=== PATIENT | female | born 1980 | race Caucasian/White ===

== ENCOUNTER 2021-06-19 10:49 | Emergency (ER) | payer BC, SELFPAY ==
--- NOTE | 2021-06-19 10:55 | ED.URI ---
HPI - URI/Sore Throat General Chief Complaint: Upper Respiratory Infection Stated Complaint: head pressure,nasal drainage Time Seen by Provider: 06/19/21 10:55 Source: patient Mode of arrival: ambulatory Limitations: no limitations History of Present Illness HPI Narrative: Ms. Rodriguez is a 40-year-old female patient presenting to the clinic today with complaints of head pressure, nasal drainage, shortness of breath, chest pain/back pain with coughing, and sore throat. She reports these symptoms have been going on approximately 3 days. She did have a course of illness with similar symptoms prior to this but it had gotten better for a few days then she had gotten sick again over the last 3 days. Reports that her child was also ill approximately 1 week ago with similar symptoms. She denies any known fevers but has had body aches as well as felt feverish. States she feels like her head is going to just pop due to the pressure. MD elicited complaint: sore throat and nasal congestion Related Data Home Medications Medication Instructions Recorded Confirmed rizatriptan 10 mg PO DIRECTED 06/19/21 06/19/21 sertraline 100 mg PO DAILY 06/19/21 06/19/21 Allergies Allergy/AdvReac Type Severity Reaction Status Date / Time Sulfa (Sulfonamide Allergy Hives Verified 06/19/21 11:25 Antibiotics) Review of Systems Review of Systems: Pertinent positives per HPI. Patient denies any rash, visual changes, dizziness, palpitations, nausea, vomiting, diarrhea, constipation, abdominal pain, or any urinary issues. PMFSH Comments At the time of my signature, I reviewed and agree with the nursing past medical, surgical, social, and family history. There is no relevant family history pertinent to the patient complaint. Exam Narrative: General: Well-developed, well nourished, in no apparent distress Head: Normocephalic, atraumatic Eyes: Pupils equally round and reactive to light bilaterally, EOM intact, sclera and conjunctive clear, no discharge, lids normal Ears: TMs intact and clear, ear canals clear, no drainage, grossly hearing normal. Nose: Nares patent, clear nasal discharge, mild inflammation, no sinus tenderness. Mouth: Oral pharynx without lesions or masses, good dentition, MMM. Postnasal drip, oropharynx red Neck: Supple, trachea midline, no enlargement of anterior or posterior cervical nodes, no thyroid masses or goiter palpable. Cardio: Regular rate and rhythm, s1 and s2 normal, no murmur appreciated. Resp: Clear to auscultation bilaterally, no rhonchi, rales, wheezing or rubs Course Course Emergency Course: Portions of this record may have been created with voice recognition software. Level of Care: Express Care Visit Vital Signs Vital signs: Vital Signs Temperature 37.1 C 06/19/21 11:05 Pulse Rate 110 H 06/19/21 11:05 Respiratory Rate 18 06/19/21 11:05 Blood Pressure 113/73 06/19/21 11:05 Pulse Oximetry 98 06/19/21 11:05 Temperature 37.1 C 06/19/21 11:05 Pulse Rate 110 H 06/19/21 11:05 Respiratory Rate 18 06/19/21 11:05 Blood Pressure 113/73 06/19/21 11:05 Pulse Oximetry 98 06/19/21 11:05 Vital signs reviewed MDM - URI/Sore Throat MDM Narrative Medical decision making narrative: At the time of visit patient is resting comfortably on the exam table. Covid testing, strep testing, and influenza testing obtained in the clinic. Patient was positive for influenza A. Reports symptoms have been proximately going on for 3 days so I will go ahead and give a course of Tamiflu. Droplet precautions regarding influenza A discussed with the patient in detail. Other supportive measures to treat symptoms discussed Differential Diagnosis Differential diagnosis: Likely upper respiratory infection, croup, otitis media, sinusitis, viral infection, bronchitis, influenza and pharyngitis Lab Data Labs: Lab Results 06/19/21 Range/Units 11:25 POC SARS CoV-2 Ag Negative (Negative) Infl
[2021-06-19 11:05] VITALS: BP 113/73; PULSE 110; RESP 18; TEMP 37.1; O2SAT 98
== END 2021-06-19 11:48 | disposition home or self-care (01) ==
PROVIDERS: Emergency Provider Nurse Practitioner Family; PCP Family Medicine
DX: J10.1 Influenza due to other identified influenza virus with other respiratory manifestations (principal); Z20.822 Contact with and (suspected) exposure to COVID-19; F41.9 Anxiety disorder, unspecified
CPT/HCPCS: 87081; 87426; 87804; 87880; 99203; C9803; G0463

== ENCOUNTER 2022-02-25 01:27 | Day surgery (SDC) | payer BC, SELFPAY ==
[2022-02-14 14:19] VITALS: BMI 28.3
--- NOTE | 2022-02-14 14:27 | PC.NURSE ---
Report to the Outpatient Waiting Room, entrance under the green pavilion located off [facility], at time _0930_ on date __02/25/22. Planned Procedure Time: _1130_. Time changes happen often and if your time is changed the preop area will call you the afternoon before. - You and your visitor will be asked to self-screen and do not enter if you have any COVID symptoms. - Only one visitor is requested with a max of two and NO children visitors are allowed at this time. - The patient visitor may be requested to leave or wait in car when not with patient due to distancing restrictions. - A mask is optional within the hospital. Patients may have clear liquids (water, carbonated beverages, clear teas, apple juice) until 3 hours prior to surgery with a maximum of 20 ounces. - No food from midnight until time of surgery - Infants may have breast milk until 4 hours before surgery, infant formula 6 hours prior to surgery. - Children will be allowed to drink immediately following surgery. If applicable, please bring a bottle or sippy cup to assist with drinking. Juice, water, soda, and popsicles are readily available. For infants on formula, please bring formula the day of surgery. Pacifiers are allowed. Take the following medications with a SIP of water the morning of surgery: ___SERTRALINE, PANTOPRAZOLE, MIGRAINE MEDICATION_IF NEEDED__ Medications to discontinue per physician NONE Date to take last dose NONE Please no make-up, nail guamanian, hairspray, perfume, deodorant, or body powder the day of surgery. No jewelry (including any body piercings) or valuables the day of surgery, leave them at home. Please take a shower or bath the night before, or the morning of, surgery with an antibacterial soap. Wear comfortable, loose fitting clothing. Children are encouraged to wear pajamas. - Jewelry must be removed prior to entering the operating room. Rings and piercings that are not removed may be cut off. - The hospital will not accept responsibility for valuables. - Please leave all valuables, including medications, at home the day of surgery. If you are going home after surgery, a licensed moving van driver must drive you home. - NO public transportation without another adult if you receive anesthesia. - We recommend that an adult stay with you for 24 hours following discharge. - We also recommend that you do not drive, make important decision, drink alcoholic beverages, or take any drugs that were not prescribed by your health care provider for at least 24 hours after your discharge time. For Pediatric surgeries, we recommend two adults accompany the child home. Follow any additional instructions given to you from your surgeon. If you or anyone in your household have experienced Covid symptoms in the past week, please notify your surgeon or the nurse liaison at the phone number below for possible testing. Telephone instructions given to ____PATIENT and asked if any additional questions and then verbalized understanding. Patient advised to call surgeon office or pre surgery nurse liaison [phone] if any additional questions.
--- NOTE | 2022-02-23 07:54 | PM.IMHP ---
H&P: HPI History of Present Illness Date/Time: 02/23/22 07:54 Chief Complaint: desires permanent sterilization and bleeding refractory to medical therapy Narrative: cis 41-year-old female who is admitted for laparoscopic bilateral tubal ligation hysteroscopy dilatation curettage and endometrial ablation. She has had excessive heavy bleeding and dysmenorrhea she has been unable take the control pill she did feel well on it she refused an IUD or any other hormonal manipulation. She understands this to be permanent irreversible. Risks and benefits of these procedures were reviewed including but not exclusive of , aspiration pneumonia, bleeding, transfusion, perforation injury to bowel, bladder, ureters, or other internal organs with need for open laparotomy. She received the ACOG handout entitled sterilization for men and women as well as hysteroscopy and dilatation and curettage respectively. She received the handout on Betsy. She had all questions answered and asked to proceed [facility] Social History Social History Years smoked: 2 Smoking status: Former smoker Additional smoking assessment comments: RARE SOCIAL SMOKER Alcohol intake: current Drinks per week: 2 Substance use: never Living arrangements: with family Meds Home Medications and Allergies Home Medications Medication Instructions Recorded Confirmed Type sertraline 100 mg tablet 100 mg PO DAILY 06/19/21 06/19/21 History pantoprazole 40 mg tablet,delayed 40 mg PO DAILY 02/14/22 02/14/22 History release sumatriptan succinate 50 mg tablet 50 mg PO PRN MIGRAINE 02/14/22 02/14/22 History Allergies Allergy/AdvReac Type Severity Reaction Status Date / Time Sulfa (Sulfonamide Allergy Hives Verified 02/14/22 14:13 Antibiotics) Exam Const: General: cooperative, healthy appearing, comfortable and well groomed Nutritional Appearance: average body habitus Orientation/consciousness: oriented to person, oriented to place and oriented to time HENMT: Head: normal to inspection Resp: Effort & Inspection: normal respiratory effort Cardio: Rate: regular rate Rhythm: regular rhythm Heart sounds: S1 normal heart sound present and S2 normal heart sound present GI: Inspection: normal to inspection Auscultation: normal bowel sounds : Speculum Exam - Vagina: normal appearance of the vagina Speculum Exam - Cervix: normal appearance of the cervix Bimanual exam- vagina & uterus: enlarged Bimanual Exam- Adnexa, other: normal adnexae Assessment and Plan Assessment and plan (1) Sterilization: Code(s): Z30.2 - Encounter for sterilization Status: Acute (2) Vaginal bleeding: Code(s): N93.9 - Abnormal uterine and vaginal bleeding, unspecified Status: Acute Plan laparoscopic bilateral tubal ligation. Hysteroscopy/ dilatation curettage/Betsy ablation
[2022-02-25] VITALS (9 sets, daily range): BP systolic 112–139; BP diastolic 73–92; PULSE 66–87; RESP 11–16; TEMP 36.3–36.5; O2SAT 99–100
--- NOTE | 2022-02-25 07:16 | WPDHPUPDATE1 ---
History and Physical Update Update Date/Time: 02/25/22 07:16 History and Physical has been reviewed, including an updated exam of the patient. There are NO changes in the patient's condition. Risks, benefits, and alternatives have been discussed and questions answered. Patient agrees to proceed with procedure.
[2022-02-25] MEDS: ACETAMINOPHEN 500 MG TABLET 1000 MG PO (10:10)
--- NOTE | 2022-02-25 10:18 | WPDANESEPPF ---
Anes - Initial Pre Proc Eval Procedure: Operation Date: 02/25/22 11:30 Proposed Procedures p Laparoscopic Bilateral Tubal Ligation with Fallopian Rings - Jonathan Ruiz MD s Hysteroscopy with Dilation and Curettage, Betsy Endometrial Ablation - Jonathan Ruiz MD Date/Time: 02/25/22 10:18 Surgeon: Jonathan Ruiz MD Pre Op Diagnosis: Desire Sterilization, Irrg Bleeding Patient Data Age: 41 Gender: F Height: 1.63 m Weight: 75 kg Allergies Allergy/AdvReac Type Severity Reaction Status Date / Time duloxetine [From Cymbalta] AdvReac Itching Verified 02/25/22 09:59 Sulfa (Sulfonamide AdvReac Hives Verified 02/25/22 09:59 Antibiotics) sulfamethoxazole AdvReac Itching Verified 02/25/22 09:59 [From Bactrim] trimethoprim [From Bactrim] AdvReac Itching Verified 02/25/22 09:59 venlafaxine [From Effexor] AdvReac Itching Verified 02/25/22 09:59 Home Medications Medication Instructions Recorded Confirmed Type sertraline 100 mg tablet 100 mg PO DAILY 06/19/21 06/19/21 History pantoprazole 40 mg tablet,delayed 40 mg PO DAILY 02/14/22 02/25/22 History release sumatriptan succinate 50 mg tablet 50 mg PO PRN MIGRAINE 02/14/22 02/25/22 History hydrocodone 5 mg-acetaminophen 325 1 tablet PO Q4H PRN pain #20 tabs 02/25/22 Rx mg tablet Patient hx anesthesia problems: post op nausea/vomiting Family hx anesthesia problems: other (grandfather confusion) Results Review: All pre-operative results and documents have been reviewed as part of the pre-operative evaluation. [facility] Past Medical History Medical History Anxiety GERD (gastroesophageal reflux disease) Social History Social History Years smoked: 2 Smoking status: Former smoker Additional smoking assessment comments: RARE SOCIAL SMOKER Alcohol intake: current Drinks per week: 2 Substance use: never Living arrangements: with family Anes - Eval Final PreProcedure Day of Procedure 02/25/22 10:18 Patient weight: overweight Heart: regular rate and rhythm Lungs: clear to auscultation Airway: Mallampati scale class II Neurological: alert and oriented Last oral intake: >/= 8 hours ASA classification: II Emergent: no Anesthetic plan: proceed Anesthesia type and monitoring: general ETT and standard monitoring Results Review: All pre-operative results and documents have been reviewed as part of the pre-operative evaluation. Informed Consent: The patient's anesthetic plan and its attendant risks and benefits were discussed with the patient/family/POA. Questions were solicited and answers provided to the satisfaction of the patient/family/POA.
[2022-02-25] MEDS: LACTATED RINGERS 1,000 ML 30 ML IV CONT ×2 (10:20→12:40)
[2022-02-25] MEDS: SCOPOLAMINE 1.5 MG PATCH TRANSDERM (10:47)
[2022-02-25] MEDS: KETOROLAC 15 MG/ML VIAL (*BKC) IV PUSH (10:55)
--- NOTE | 2022-02-25 11:45 | P.OP_ITS ---
Procedure Note - Detailed Date of Procedure 02/25/22 Pre-op Diagnosis Desire Sterilization, Irrg Bleeding Post-op Diagnosis Same Procedure Performed Laparoscopic tubal ligation with rings/hysteroscopy/ dilatation curettage/Betsy ablation Surgeon Jonathan Ruiz MD Anesthesia General Indications since 41-year-old female who desires permanent sterilization with excessive heavy bleeding Findings normal-appearing uterus ovaries and tubes Description of Procedure the patient is prepped draped in normal sterile fashion placed in dorsal lithotomy position. Under excellent general trach anesthesia weighted speculum placed in posterior fornix vagina. Anterior lip of the cervix grasped with single-tooth tenaculum. The Germain's cannula was inserted the cervix and attached to the single-tooth be used later for uterine manipulation. After emptying the bladder clear urine the weighted speculums removed and gloves were changed. An infraumbilical incision made the Veress needle passed in the abdomen. Abdomen filled with CO2 gas to 15mm Hg. 5mm trocar advanced the abdomen and under direct visualization assuring no injury. The patient was placed in Trendelenburg and a suprapubic incision made. The 8mm trocar advanced under direct visualization assuringno injury. The left fallopian tube was grasped good knuckle of tube formed its midportion with excellent blanching. Right fallopian tube was then grasped and the fallopian ring was placed in the midportion with excellent blanching there. No other abnormalities were seen in photo documentation was undertaken. The appendix and the liver and gallbladder edge appeared within normal limits. The gas removed from the abdomen. The lower site removed. The upper site removed incisions closed with 4 Monocryl and glue. Attention was turned to the hysteroscopy. uterus was sounded to 8cm. Serial dilatation with fragmented dilators performed followed by passes the 5mm visualizing hysteroscope using normal saline as visualizing the thick irregular endometrial tissue was seen in each fallopian tube os could be seen but no evidence of definitive pathology was seen. Uterus scraped over the entire 360? till good grating sound was heard. The instruments removed and the Betsy instrument was placed in the uterus at the appropriate setting. It was burned for 120seconds. This was then removed and the hysteroscope reinserted and a g ood burn was seen with photo documentation undertaken. The instruments were then removed. The patient was awakened. She went to recovery in satisfactory condition. All sponge, needle, instrument counts were correct. There were no acute immediate complications Estimated Blood Loss 5 Drains No Packing No Pathology Yes Complications No immediate complications Condition Stable Disposition PACU
[2022-02-25] MEDS: fentaNYL CITRATE INJ (*CRX) 100 MCG/2 ML VIAL 25 MCG IV PUSH ×5 (12:02→12:37)
[2022-02-25] MEDS: oxyCODONE HCL (*CRX) 5 MG TAB IR PO (13:12)
[2022-02-25] MEDS: ONDANSETRON INJ 4 MG/2 ML VIAL IV PUSH (13:25)
== END 2022-02-25 13:50 | disposition home or self-care (01) ==
PROVIDERS: PCP Family Medicine; Visit Provider Obstetrics & Gynecology
PROC: (CPT 58671; principal; 2022-02-25 11:30)
PROC: 0U5B8ZZ Destruction of Endometrium, Via Natural or Artificial Opening Endoscopic (ICD-10-PCS; CPT 58563; 2022-02-25 11:30)
DX: Z30.2 Encounter for sterilization (principal); N93.9 Abnormal uterine and vaginal bleeding, unspecified; N94.6 Dysmenorrhea, unspecified; F41.9 Anxiety disorder, unspecified; K21.9 Gastro-esophageal reflux disease without esophagitis; Z87.891 Personal history of nicotine dependence
CPT/HCPCS: 58671; 58563; 88305; A4264; A9270; J0330; J1100; J1885; J2250; J2405; J2704; J3010; J7030; J7120

== ENCOUNTER 2022-10-14 10:01 | Emergency (ER) | payer BC, SELFPAY ==
[2022-10-14 10:09] VITALS: BP 128/83; PULSE 99; RESP 16; TEMP 36.9; O2SAT 100
--- NOTE | 2022-10-14 10:09 | ED.URI ---
HPI - URI/Sore Throat General Chief Complaint: Upper Respiratory Infection Stated Complaint: Sore Throat,Fatigue,Congestion Time Seen by Provider: 10/14/22 10:09 History of Present Illness HPI Narrative: 42 year old female presented for complaint of sore throat, cough, bodyaches and fatigue. Onset 2 days. Cough is productive. Reports painful swallow, mild nausea, and chest feels heavy. Took negative covid test the day of symptom onset, and was seen by pcp yesterday and had negative rapid strep. Endorses sick contacts with unknown illness. Took Dayquil today. Denies cp, palpitations, sob, wheezing, v/d/f/c. Related Data Home Medications Medication Instructions Recorded Confirmed pantoprazole 40 mg tablet,delayed 40 mg PO DAILY 02/14/22 10/14/22 release sumatriptan succinate 50 mg tablet 50 mg PO PRN PRN MIGRAINE 02/14/22 10/14/22 escitalopram oxalate 20 mg tablet 20 mg PO DAILY 10/14/22 10/14/22 (Lexapro) sarecycline 60 mg tablet (Seysara) 60 mg PO DAILY 10/14/22 10/14/22 Allergies Allergy/AdvReac Type Severity Reaction Status Date / Time duloxetine [From Cymbalta] AdvReac Mild Itching Verified 10/14/22 10:04 Sulfa (Sulfonamide AdvReac Mild Hives Verified 10/14/22 10:04 Antibiotics) sulfamethoxazole AdvReac Mild Itching Verified 10/14/22 10:04 [From Bactrim] trimethoprim [From Bactrim] AdvReac Mild Itching Verified 10/14/22 10:04 venlafaxine [From Effexor] AdvReac Mild Itching Verified 10/14/22 10:04 Review of Systems Review of Systems: CONSTITUTIONAL: reports body aches, denies fever, chills, or sweats. EYES: Denies visual changes, redness, or discharge. ENT: Denies rhinorrhea, congestion, or otalgia. Reports sore throat CARDIOVASCULAR: Denies chest pain, palpitations, or edema. RESPIRATORY: Reports cough Denies dyspnea. GASTROINTESTINAL: Denies abdominal pain, nausea, vomiting, or diarrhea. SKIN: Denies rash, itching, or wounds. MUSCULOSKELETAL: Denies back pain, joint pain, or myalgia. NEUROLOGIC: Denies headache PMFSH Past Medical History Medical History Anxiety GERD (gastroesophageal reflux disease) Social History Social History Years smoked: 2 Smoking status: Former smoker Additional smoking assessment comments: RARE SOCIAL SMOKER Alcohol intake: current Drinks per week: 2 Substance use: never Living arrangements: with family Exam Narrative: GENERAL: mildly Ill-appearing, no acute distress. EYES: conjunctivae clear ENT: Mucous membranes moist. TMs pearly gross with normal light reflex bilaterally; no tragal tenderness. Oropharynx not erythematous without lesions, Tonsillar enlargement or exudate. No drooling, no hoarseness, no trismus, uvula midline. No tripod positioning, hot potato voice, or soft palate swelling. NECK: Supple. No lymphadenopathy CHEST: Clear to auscultation, breath sounds equal. No respiratory distress, speaks in full sentences. HEART: Regular rate and rhythm. No murmur heard. SKIN: Warm, dry, no rash. NEURO: Alert and oriented x3. Course Course Emergency Course: Patient is aware of diagnosis, understands and agrees to treatment plan. Anticipatory guidance given. Patient agrees to follow-up as directed and is aware of reasons to seek care at the emergency department. Portions of this record may have been created with voice recognition software Level of Care: Express Care Visit Vital Signs Vital signs: Vital Signs Temperature 98.4 F 10/14/22 10:09 Pulse Rate 99 10/14/22 10:09 Respiratory Rate 16 10/14/22 10:09 Blood Pressure 128/83 10/14/22 10:09 Pulse Oximetry 100 10/14/22 10:09 Oxygen Delivery Room Air 10/14/22 10:09 Temperature 98.4 F 10/14/22 10:09 Pulse Rate 99 10/14/22 10:09 Respiratory Rate 16 10/14/22 10:09 Blood Pressure 128/83 10/14/22 10:09 Pulse Oximetry 100 07
== END 2022-10-14 10:48 | disposition home or self-care (01) ==
PROVIDERS: Emergency Provider Nurse Practitioner Family; PCP Family Medicine
DX: B34.9 Viral infection, unspecified (principal); Z20.822 Contact with and (suspected) exposure to COVID-19; K21.9 Gastro-esophageal reflux disease without esophagitis; F41.9 Anxiety disorder, unspecified
CPT/HCPCS: 87081; 87426; 87804; 87880; 99213; C9803; G0463

== ENCOUNTER → 2022-10-31 08:05 | Outpatient (CLI) | payer BC, SELFPAY ==
--- NOTE | ~2022-10-31 | US_ITS ---
EXAMINATION: US abdomen limited DATE: 10/31/2022 08:38 INDICATION: Generalized abdominal pain TECHNIQUE: Multiple grayscale and Doppler ultrasound images of the abdomen were obtained. COMPARISON: None available FINDINGS: The head and body of the pancreas are normal. The pancreatic tail is obscured by bowel gas. The liver is normal with normal echogenicity and echotexture. No surface nodularity. Normal hepatope sebastian flow in the main portal vein. There is a 7 mm gallbladder polyp. There are no gallbladder wall th ickening or pericholecystic fluid. The normal common bile duct measures 3 mm. There was no sonographi c Chawla sign. IMPRESSION: 1. No sonographic correlate for the patient's symptoms. 2. 7 mm gallbladder polyp. Follow-up ultrasound in one year is recommended. Reviewed, dictated and finalized at location B.
== END ==
PROVIDERS: PCP Family Medicine; Visit Provider Family Medicine
DX: R10.84 Generalized abdominal pain (principal); K82.4 Cholesterolosis of gallbladder
CPT/HCPCS: 76705

== ENCOUNTER → 2022-12-21 09:54 | Outpatient (CLI) | payer BC, SELFPAY ==
--- NOTE | ~2022-12-21 | CT_ITS ---
CT of the Abdomen and Pelvis: Indication: Abdominal pain Technique: 2.5 mm axial scans were obtained through the abdomen and pelvis following intravenous adm inistration of 100 cc of Omnipaque 350. Dose reduction technique was used on this scan by utilizing a utomated exposure control and iterative reconstruction technique. The dose-length product (DLP) was 7 00.13 mGy-cm. Findings: Scans through the lung bases are unremarkable. The liver, spleen, pancreas, gallbladder, adrenals and kidneys are within normal limits. No evidence of aortic aneurysm. No lymphadenopathy. No bowel obstruction or bowel wall thickening. There is no evidence to suggest acute appendicitis. Images through the pelvis were performed. Urinary bladder unremarkable. No adnexal mass seen. No asci sonal. Impression: No significant abnormalities seen. Reviewed, dictated and finalized at [facility]. Impression: No significant abnormalities seen.
== END ==
PROVIDERS: PCP Family Medicine; Visit Provider Family Medicine
DX: R10.84 Generalized abdominal pain (principal)
CPT/HCPCS: 74177; Q9967

== ENCOUNTER 2023-05-26 01:04 | Day surgery (SDC) | payer BC, SELFPAY ==
[2023-05-18 11:06] VITALS: BMI 27.5
[2023-05-26 08:49] VITALS: BP 116/67; PULSE 120; RESP 18; TEMP 36.1; O2SAT 98
[2023-05-26] MEDS: LACTATED RINGERS 1,000 ML 150 ML IV CONT (08:53)
--- NOTE | 2023-05-26 09:01 | WPDANESEPPF ---
Anes - Initial Pre Proc Eval Procedure: Operation Date: 05/26/23 10:00 Proposed Procedures p Esophagogastroduodenoscopy & Colonoscopy - Semaj Nicholson MD Date/Time: 05/26/23 09:01 Surgeon: Semaj Nicholson MD Pre Op Diagnosis: dysphagia,nausea,GERD,Constipation, Patient Data Age: 42 Gender: F Height: 1.63 m Weight: 71.9 kg Last Vital Signs Temp 97 F L 05/26/23 08:49 Pulse 120 H 05/26/23 08:49 Resp 18 05/26/23 08:49 BP 116/67 05/26/23 08:49 Pulse Ox 98 05/26/23 08:49 O2 Del Method Room Air 05/26/23 08:49 Allergies Allergy/AdvReac Type Severity Reaction Status Date / Time duloxetine [From Cymbalta] Allergy Mild Itching Verified 05/26/23 08:48 Sulfa (Sulfonamide Allergy Mild Hives Verified 05/26/23 08:48 Antibiotics) sulfamethoxazole Allergy Mild Hives Verified 05/26/23 08:48 [From Bactrim] trimethoprim [From Bactrim] Allergy Mild Hives Verified 05/26/23 08:48 venlafaxine [From Effexor] Allergy Mild Itching Verified 05/26/23 08:48 Home Medications Medication Instructions Recorded Confirmed Type sumatriptan succinate 50 mg tablet 50 mg PO PRN PRN MIGRAINE 02/14/22 05/26/23 History alprazolam 0.25 mg tablet 0.25 mg PO DAILY PRN Anxiety 03/30/23 05/26/23 History spironolactone 100 mg tablet 100 mg PO DAILY 03/30/23 05/26/23 History pantoprazole 40 mg tablet,delayed 40 mg PO QAM #30 tabs 05/04/23 05/26/23 Rx release sucralfate 1 gram tablet (Carafate) 1 g PO ACHS #120 tabs 05/04/23 05/26/23 Rx ascorbic acid (vitamin C) 500 mg 500 mg PO DAILY 05/18/23 05/26/23 History capsule magnesium gluconate 120 mg PO DAILY 05/18/23 05/26/23 History sertraline 100 mg tablet 100 mg PO DAILY 05/18/23 05/26/23 History vitamin B complex 1 cap PO DAILY 05/18/23 05/26/23 History Patient hx anesthesia problems: none Family hx anesthesia problems: none Results Review: All pre-operative results and documents have been reviewed as part of the pre-operative evaluation. [facility] Past Medical History Medical History (Updated 03/30/23 @ 11:38 by Kathrin Alonso APRN) Anxiety Constipation Dysphagia GERD (gastroesophageal reflux disease) Nausea Rectal bleeding Social History Social History Years smoked: 2 Smoking status: Never smoker Additional smoking assessment comments: RARE SOCIAL SMOKER Alcohol intake: current Drinks per week: 2 Alcohol use details: DRINKS Substance use: never Living arrangements: with family Spiritual care concerns: No Anes - Eval Final PreProcedure Day of Procedure 05/26/23 09:01 Patient weight: normal Heart: regular rate and rhythm Lungs: clear to auscultation Airway: Mallampati scale class II Neurological: alert and oriented Last oral intake: >/= 8 hours ASA classification: II Emergent: no Anesthetic plan: proceed Anesthesia type and monitoring: general GIVS and standard monitoring Results Review: All pre-operative results and documents have been reviewed as part of the pre-operative evaluation. Informed Consent: The patient's anesthetic plan and its attendant risks and benefits were discussed with the patient/family/POA. Questions were solicited and answers provided to the satisfaction of the patient/family/POA.
--- NOTE | 2023-05-26 09:42 | PM.HPGS ---
History of Present Illness History of Present Illness Consent: Risks, benefits, and alternatives have been discussed and questions answered. Patient agrees to proceed with procedure. Chief complaint: dysphagia,nausea,GERD,Constipation, Narrative: Magaly Rodriguez is a 42 year old female here for egd and colonoscopy, She states at times she has trouble with food slowing down when she swallows, also gerd on protonix. Noted intermittent rectal bleeding, never had scopes Review of Systems Constitutional: Constitutional: Denies headache(s) and Denies weakness Eyes: Eyes: Denies blurry vision ENT: Reports Normal hearing present, Denies headache(s) and Denies neck pain Cardiovascular: Cardiovascular: Denies chest pain and Denies dyspnea Respiratory: Respiratory: Denies dyspnea Gastrointestinal: Gastrointestinal: Reports no additional gastrointestinal complaints Genitourinary: Genitourinary: Denies dysuria Musculoskeletal: Musculoskeletal: Denies neck pain Integumentary/Breasts: Skin/Breast: Denies dry skin Neurologic: Reports Normal hearing present, Denies headache(s) and Denies weakness Psychiatric: Psychiatric: Denies anxiety Endocrine: Endocrine: Denies change in body appearance Hematologic/Lymphatic: Hematologic/Lymphatic: Denies easy bleeding Allergic/Immunologic: Allergic/Immunologic: Denies urticaria PMFSH Past Medical History Medical History (Updated 03/30/23 @ 11:38 by Kathrin Alonso APRN) Anxiety Constipation Dysphagia GERD (gastroesophageal reflux disease) Nausea Rectal bleeding Social History Social History Years smoked: 2 Smoking status: Never smoker Additional smoking assessment comments: RARE SOCIAL SMOKER Alcohol intake: current Drinks per week: 2 Alcohol use details: DRINKS Substance use: never Living arrangements: with family Spiritual care concerns: No Meds Home Medications and Allergies Home Medications Medication Instructions Recorded Confirmed Type sumatriptan succinate 50 mg tablet 50 mg PO PRN PRN MIGRAINE 02/14/22 05/26/23 History alprazolam 0.25 mg tablet 0.25 mg PO DAILY PRN Anxiety 03/30/23 05/26/23 History spironolactone 100 mg tablet 100 mg PO DAILY 03/30/23 05/26/23 History pantoprazole 40 mg tablet,delayed 40 mg PO QAM #30 tabs 05/04/23 05/26/23 Rx release sucralfate 1 gram tablet (Carafate) 1 g PO ACHS #120 tabs 05/04/23 05/26/23 Rx ascorbic acid (vitamin C) 500 mg 500 mg PO DAILY 05/18/23 05/26/23 History capsule magnesium gluconate 120 mg PO DAILY 05/18/23 05/26/23 History sertraline 100 mg tablet 100 mg PO DAILY 05/18/23 05/26/23 History vitamin B complex 1 cap PO DAILY 05/18/23 05/26/23 History Allergies Allergy/AdvReac Type Severity Reaction Status Date / Time duloxetine [From Cymbalta] Allergy Mild Itching Verified 05/26/23 08:48 Sulfa (Sulfonamide Allergy Mild Hives Verified 05/26/23 08:48 Antibiotics) sulfamethoxazole Allergy Mild Hives Verified 05/26/23 08:48 [From Bactrim] trimethoprim [From Bactrim] Allergy Mild Hives Verified 05/26/23 08:48 venlafaxine [From Effexor] Allergy Mild Itching Verified 05/26/23 08:48 Vital Signs Vital Signs - 24 hr 05/26/23 08:49 Temperature 97 F L Pulse Rate 120 H Respiratory Rate 18 Blood Pressure 116/67 Pulse Oximetry 98 Oxygen Delivery Room Air Exam Const: General: comfortable and no acute distress HENMT: Face/Nose/Sinus: Normal nares present Eyes: General: appearance normal, both eyes and all related structures Neck: Neck: no JVD Resp: Auscultation: clear to auscultation bilaterally Cardio: Rate: regular rate Rhythm: regular rhythm GI: Inspection: non-distended GI Palp: Yes Soft to palpation Skin: General skin exam: normal color Neuro: General: gait normal Speech: normal speech Extrem: General: normal to inspection Psych: Mental Status: mental status grossly normal Assessment and Pl
--- NOTE | 2023-05-26 09:59 | SUR.OPER ---
egd ended at 952, colon started at 958
[2023-05-26 10:11] VITALS: BP 104/57; PULSE 89; RESP 19; O2SAT 100
[2023-05-26 10:21] VITALS: BP 116/77; PULSE 86; RESP 20; O2SAT 100
[2023-05-26 10:31] VITALS: BP 123/83; PULSE 75; RESP 20; O2SAT 100
== END 2023-05-26 10:39 | disposition home or self-care (01) ==
PROVIDERS: PCP Family Medicine; Visit Provider Internal Medicine Gastroenterology
PROC: 0DJ08ZZ Inspection of Upper Intestinal Tract, Via Natural or Artificial Opening Endoscopic (ICD-10-PCS; CPT 43235; principal; 2023-05-26 10:00)
DX: K21.00 Gastro-esophageal reflux disease with esophagitis, without bleeding (principal); K29.50 Unspecified chronic gastritis without bleeding; K64.8 Other hemorrhoids; F41.9 Anxiety disorder, unspecified
CPT/HCPCS: 45378; 43239; 88305; J2405; J2704; J7120

== ENCOUNTER 2024-06-04 14:49 | Emergency (ER) | payer BC, SELFPAY ==
[2024-06-04 15:05] VITALS: BP 121/82; PULSE 75; RESP 18; TEMP 36.4; O2SAT 99
--- NOTE | 2024-06-04 15:08 | ED.URI ---
HPI - URI/Sore Throat General Chief Complaint: Upper Respiratory Infection Stated Complaint: sore throat / chills / Lt Ear Pain Time Seen by Provider: 06/04/24 15:10 Source: patient Mode of arrival: ambulatory Limitations: no limitations History of Present Illness HPI Narrative: Solitario is a 43-year-old female patient presenting to the clinic today with complaints of sore throat, nasal drainage, chills, feeling flushed, and left ear pain x2 days. She reports strep is been going around the house. Denies any known fevers. Denies any chest pain or shortness of breath. Related Data Home Medications ?Medication ?Instructions ?Recorded ?Confirmed ?Last Taken ?Type sumatriptan succinate 50 mg tablet 50 mg PO PRN PRN MIGRAINE 02/14/22 05/26/23 02/24/22 History alprazolam 0.25 mg tablet 0.25 mg PO DAILY PRN Anxiety 03/30/23 05/26/23 Unknown History spironolactone 100 mg tablet 100 mg PO DAILY 03/30/23 05/26/23 Unknown History ascorbic acid (vitamin C) 500 mg 500 mg PO DAILY 05/18/23 05/26/23 Unknown History capsule magnesium gluconate 120 mg PO DAILY 05/18/23 05/26/23 Unknown History sertraline 100 mg tablet 100 mg PO DAILY 05/18/23 05/26/23 Unknown History vitamin B complex 1 cap PO DAILY 05/18/23 05/26/23 Unknown History Allergies Allergy/AdvReac Type Severity Reaction Status Date / Time duloxetine (From Cymbalta) Allergy Mild Itching Verified 06/04/24 15:10 Sulfa (Sulfonamide Allergy Mild Hives Verified 06/04/24 15:10 Antibiotics) sulfamethoxazole (From Allergy Mild Hives Verified 06/04/24 15:10 Bactrim) trimethoprim (From Bactrim) Allergy Mild Hives Verified 06/04/24 15:10 venlafaxine (From Effexor) Allergy Mild Itching Verified 06/04/24 15:10 Review of Systems Review of Systems: Pertinent positives per HPI. Patient denies any fever, chills, rash, headache, visual changes, dizziness, cough, shortness of breath, chest pain, palpitations, nausea, vomiting, diarrhea, constipation, abdominal pain, or any urinary issues. [facility] Past Medical History Medical History (Updated 06/04/24 @ 15:16 by Jhonatan Card APRN) Constipation Rectal bleeding Nausea Dysphagia GERD (gastroesophageal reflux disease) Anxiety Social History Social History Years smoked: 2 Smoking status: Never smoker Additional smoking assessment comments: RARE SOCIAL SMOKER Alcohol intake: current Drinks per week: 2 Alcohol use details: DRINKS Substance use: never Living arrangements: with family Spiritual care concerns: No Comments At the time of my signature, I reviewed and agree with the nursing past medical, surgical, social, and family history. There is no relevant family history pertinent to the patient complaint. Exam Narrative: General: Well-developed, well nourished, in no apparent distress Head: Normocephalic, atraumatic Eyes: Pupils equally round and reactive to light bilaterally, EOM intact, sclera and conjunctive clear, no discharge, lids normal Ears: TMs intact and congestion, ear canals clear, no drainage, grossly hearing normal. Nose: Nares patent, clear nasal discharge, no inflammation, no sinus tenderness. Mouth: Oral pharynx without lesions or masses, good dentition, MMM. Neck: Supple, trachea midline, no enlargement of anterior or posterior cervical nodes, no thyroid masses or goiter palpable. Cardio: Regular rate and rhythm, s1 and s2 normal, no murmur appreciated. Resp: Clear to auscultation bilaterally, no rhonchi, rales, wheezing or rubs Course Course Emergency Course: Portions of this record may have been created with voice recognition software. Level of Care: Express Care Visit Vital Signs Vital signs: Vital Signs Temperature 36.4 C 06/04/24 15:05 Pulse Rate 75 06/04/24 15:05 Respiratory Rate 18 06/04/24 15:05 Blood Pressure 121/82 06/04/24 15:05 Pulse Oximetry 99 06/04/24 15:05 Oxygen Delivery Room Air 06/04/24 15:05 Temperature 36.4 C 06/04/24 15:05 Pulse Rate 75 06/04/24 15:05 Respiratory Rate 18 06/04/24 15:05 Blood Pressure 121/82 06/04/24 15:05 Pulse Oximetry 99 06/04/24 15:05 Oxygen Delivery Room Air 06/04/24 15:05 Vital signs reviewed MDM - URI/Sore Throat MDM Narrative Medical decision making narrative: At the time of visit patient is resting comfortably on the exam table. Patient appears to be nontoxic. Labs: Strep test was performed and was negative in the clinic today. We will send strep for culture. Plan: I suspect patient has URI/pharyngitis. Supportive measures were discussed with the patient and they voiced understanding discharge instructions and agrees to treatment plan. Return precautions reviewed Differential Diagnosis Differential diagnosis: Likely upper respiratory infection, otitis media, sinusitis, viral infection, bronchitis, influenza, pharyngitis and other (COVID) Lab Data Labs: Lab Results 06/04/24 Range/Units 15:17 POC Grp A Strep Screen Negative (Negative) Discharge Plan Discharge Clinical Impression: Pharyngitis Qualifiers: Pharyngitis/tonsillitis etiology: unspecified etiology Qualified Code(s): J02.9 - Acute pharyngitis, unspecified Upper respiratory infection Qualifiers: URI type: unspecified URI Qualified Code(s): J06.9 - Acute upper respiratory infection, unspecified Patient Disposition: Home, Self-Care Condition: Stable Instructions: Antibiotic Form, Pharyngitis (ED), Cold Symptoms (ED) Additional Instructions: Strep test was negative in the clinic today. We will send strep for culture. May take DayQuil/NyQuil for cold/flu symptoms Increase fluids and stay well hydrated Tylenol/motrin for pain/fever Flonase and OTC antihistamines as directed Vicks vapor rub to open sinuses Sinus rinses for congestion Cepacol spray, cough drops, throat lozenges, warm tea with honey/lemon, gargle salt water to soothe throat BRAT diet for diarrhea Clear liquids x 24 hours then advance as tolerated for nausea/vomiting Go to the ED if you develop a worsening in your condition- high fever not controlled by Tylenol or Motrin, dehydration, weakness, lethargy, shortness of breath, or chest pain. Follow up with your PCP in 3-5 days if symptoms persist. Patient Language: Solomon Islander Prescriptions: No Action alprazolam 0.25 mg tablet 0.25 mg PO DAILY PRN (Reason: Anxiety) spironolactone 100 mg tablet 100 mg PO DAILY sumatriptan succinate 50 mg tablet 50 mg PO PRN PRN (Reason: MIGRAINE) sertraline 100 mg tablet 100 mg PO DAILY vitamin B complex Capsule 1 cap PO DAILY ascorbic acid (vitamin C) 500 mg Capsule 500 mg PO DAILY magnesium gluconate 120 mg PO DAILY pantoprazole 40 mg tablet,delayed release (DR/EC) 40 mg PO QAM Qty: 30 3RF sucralfate [Carafate] 1 gram tablet 1 g PO ACHS Qty: 120 0RF Follow-up/Referrals: Edward,MD Priscilla [Primary Care Provider] - Stand Alone Forms: Work/School Release IP Time of Disposition: 15:17 Quality NIHSS Nursing Documentation ED NIHSS nursing documentation: reviewed/agree
[2024-06-04 15:18] LABS: EDSTREPNEGPOS1 Negative (Negative)
--- OUTSIDE RECORDS SUMMARY | 2024-06-04 16:53 | XMS_ITS | Encounter Summary ---
Author Organization [facility] Address [address] [place] [address] Care Team Providers Care Barrel Waterer Name Role Phone Priscilla Leon MD Primary Care Provider [phone] Encounter Details Date Type Department Care Team (Late st Contact Info) Description 10/22/2019 Lab Requisition [facility] [address] [place] [id number] Marychuy Andrade MD [address] [facility] [address] [place] [address] Social History Tobacco Use Types Packs/Day Years Used Date Smoking Tobacco: Never Sex and Gender Information Value Date Recorded Sex Assigned at Not on file Gender Identity Not on file Sexual Orientation Not on file documented as of this encounter Plan of Treatment Not on file documented as of this encounter Procedures Procedure Name Priority Date/Time Associated Diagnosis Comments DERMATOPATHOLOGY Routine 10/21/2019 12:0 0 AM CDT documented in this encounter Results * DERMATOPATHOLOGY (10/21/2019 12:00 AM CDT) Case Report Dermatopathology Report Case: [id number] Authorizing Provider: Marychuy Andrade MD Collected: 10/21/2019 12:00 AM Ordering Location: [facility] Received: 10/22/2019 06:28 AM Pathologist: Carlota Arellano MD Specimen: Skin, left abd 0 3:35 PM CDT DERMATOPATHOLOGY LABORATORY Final Diagnosis Specimen A. SKIN, left abd: LENTIGINOUS MELANOCYTIC NEVUS, JUNCTIONAL TYPE, IRRITATED (JUNCTIONAL MELANOCYTIC NEVUS WITH ARCHITECTURAL DISORDER) (D22.5) 0 3:35 PM CDT DERMATOPATHOLOGY LABORATORY Clinical History R/O irregular nevus, irregular border, irregular color 0 3:35 PM CDT DERMATOPATHOLOGY LABORATORY Gross Description Specimen A: Received is one formalin filled container labeled with the patient's name and designated left abd. The specimen consists of a shave biopsy measuring 7x6x1 mm. Jar 0. 0 3:35 PM CDT DERMATOPATHOLOGY LABORATORY Microscopic Description Specimen A. SKIN, left abd: This is a junctional nevus. There is melanin pigment in the stratum corneum. There is architectural disorder characterized by a lentiginous proliferation of melanocytes between irregular nests of cells along the dermal-epidermal junction. There is underlying fibroplasia of the papillary dermis. (Junctional Enrrique's Nevus or Junctional Dysplastic Nevus) 0 3:35 PM CDT DERMATOPATHOLOGY LABORATORY Disclaimer An external and internal positive and negative controls are appropriate for the histochemical, immunohistochemical and immunofluorescence stain(s) in this case (if any), except where stated explicitly. The performance characteristics of the stain(s) cited in this report were developed and its performance characteristic determined by the Dermatopathology Laboratory at [facility], directed by Dr. Wade Belle. These tests need not be, and therefore are not, approved by the [place] Food and Drug Administration. The tests are used for clinical purposes. Billing Codes Specimen Charges Stain Charges 82148 1 0 3:35 PM CDT DERMATOPATHOLOGY LABORATORY Embedded Images 0 3:35 PM CDT DERMATOPATHOLOGY LABORATORY Pathology/Cytolog y TISSUE SPECIMEN FROM SKIN / Unknown 10/21/2019 10/22/2019 6:28 AM CDT Marychuy Andrade MD LAB - PATHOLOGY/CYT OLOGY ORDERABLES DERMATOPATHOLOGY LABORATORY [facility] - Department of Dermatology Lease Out Worker [place]/[address] [phone] documented in this encounter Visit Diagnoses Not on filedocumented in this encounter Care Teams Barrel Waterer Relationship Specialty Start Date End Date Priscilla Leon MD PCP - General Family Medicine 08/30/16 documented as of this encounter
--- OUTSIDE RECORDS SUMMARY | 2024-06-04 16:53 | XMS_ITS | Encounter Summary ---
Author Organization [facility] Address [address] [place] [address] Care Team Providers Care Manager Hvac Name Role Phone Priscilla Leon MD Primary Care Provider [phone] Encounter Details Date Type Department Care Team (Late st Contact Info) Description 10/24/2018 Lab Requisition [facility] Derm[facility] Lab [address] [facility] [facility] [place] [id number] Concepcion Florian DO [address] [facility] [address] [place] [address] Social History Tobacco Use Types Packs/Day Years Used Date Smoking Tobacco: Never Sex and Gender Information Value Date Recorded Sex Assigned at Not on file Gender Identity Not on file Sexual Orientation Not on file documented as of this encounter Plan of Treatment Not on file documented as of this encounter Procedures Procedure Name Priority Date/Time Associated Diagnosis Comments DERMATOPATHOLOGY Routine 10/23/2018 12:0 0 AM CDT documented in this encounter Results * DERMATOPATHOLOGY (10/23/2018 12:00 AM CDT) Case Report Dermatopathology Report Case: [id number] Authorizing Provider: Concepcion Florian DO Collected: 10/23/2018 12:00 AM Pathologist: Carlota Arellano MD Received: 10/24/2018 08:44 AM Specimen: Skin, left breast 9 11:46 AM CDT DERMATOPATHOLOGY LABORATORY Final Diagnosis Specimen A. SKIN, left breast: COMPOUND MELANOCYTIC NEVUS (D22.5) 9 11:46 AM CDT DERMATOPATHOLOGY LABORATORY Clinical History Aragon/lake macule nevus R/O atypia. 11:46 AM CDT DERMATOPATHOLOGY LABORATORY Gross Description Specimen A: Received is one formalin filled container labeled with the patient's name and designated left breast. The specimen consists of a shave measuring [id number]. Jar 0. 11:46 AM CDT DERMATOPATHOLOGY LABORATORY Microscopic Description Specimen A. SKIN, left breast: There are nests of melanocytes at the dermal-epidermal junction and within the dermis. 11:46 AM CDT DERMATOPATHOLOGY LABORATORY Disclaimer An external and internal positive and negative controls are appropriate for the histochemical, immunohistochemical and immunofluorescence stain(s) in this case (if any), except where stated explicitly. The performance characteristics of the stain(s) cited in this report were developed and its performance characteristic determined by the Dermatopathology Laboratory at [facility], directed by Dr. Wade Belle. These tests need not be, and therefore are not, approved by the [place] Food and Drug Administration. The tests are used for clinical purposes. Billing Codes Specimen Charges Stain Charges 48178 1 11:46 AM CDT DERMATOPATHOLOGY LABORATORY Embedded Images 11:46 AM CDT DERMATOPATHOLOGY LABORATORY Pathology/Cytolog y TISSUE SPECIMEN FROM SKIN / Unknown 10/23/2018 10/24/2018 8:44 AM CDT Concepcion Florian DO LAB - PATHOLOGY/C YTOLOGY ORDERABLES DERMATOPATHOLOGY LABORATORY [facility] - Department of Dermatology [address] [place] [address], 5th Floor Lab [address] [phone] documented in this encounter Visit Diagnoses Not on filedocumented in this encounter Care Teams Manager Hvac Relationship Specialty Start Date End Date Priscilla Leon MD PCP - General Family Medicine 08/30/16 documented as of this encounter
--- OUTSIDE RECORDS SUMMARY | 2024-06-04 16:53 | XMS_ITS | Referral Summary ---
Author Organization [place] [id number] [facility] Address [address] [place] [address] Care Team Providers Care Stave Planer Tender Name Role Phone Priscilla Leon MD Primary Care Provider [phone] Allergies Active Allergy Reactions Criticality Noted Date Comments Amoxicillin-Pot Clavulanate Itching,Naus ea And Vomiting Low 09/12/2013 Sulfa (Sulfonamide Antibiotics) Itching Low 04/30/2018 Sulfamethoxazole-Trimethopri m Itching,Nausea And Vomiting Low 09/12/2013 Medications ALPRAZolam (XANAX) 0.25 mg tablet 06/03/[address] (CYMBALTA) 30 mg capsule 04/13/2019 Active vortioxetine (TRINTELLIX) 10 mg tabletIndication s:major depressive disorder 10 mg daily Active predniSONE (DELTASONE) 10 mg tablet packIndications: Tinnitus 20mg bid x 5 days, 10mg bid x 3 days, 10mg daily x 3 days 29 tablet 08/21/2019 Active Active Problems No known active problems Social History Tobacco Use Types Packs/Day Years Used Date Smoking Tobacco: Former Smokeless Tobacco: Never Comments No Sex and Gender Information Value Date Recorded Sex Assigned at Not on file Legal Sex Female 2:26 AM RHEOLOGIST Gender Identity Not on file Sexual Orientation Not on file Last Filed Vital Signs Vital Sign Reading Time Taken Comments Blood Pressure 126/75 01/01/2017 4:35 AM CDT Pulse 67 01/01/2017 4:35 AM CDT Temperature 36.7 C (98.1 F) 06/06/2019 9:03 AM CDT Respiratory Rate - - Oxygen Saturation 98% 01/01/2017 4:35 AM CDT Inhaled Oxygen Concentration - - Weight 68.9 kg (152 lb) 06/06/2019 9:03 AM CDT Height 165.1 cm (5' 5 ) 06/06/2019 9:03 AM CDT Body Mass Index 25.29 06/06/2019 9:03 AM CDT Plan of Treatment Not on file Procedures Procedure Name Priority Date/Time Associated Diagnosis Comments SCREENING MAMMOGRAM BILATERAL W DAVID Schedule Routine, Read Routine (OP Routine) 01/30/2024 3:39 PM RHEOLOGIST Screening mammogram, encounter for from Last 3 Months or Most Recently Relevant to Health Maintenance Results * Screening Mammogram Bilateral W David (01/30/2024 3:39 PM RHEOLOGIST) Anatomical Region Laterality Modality Breast Bilateral Mammography Impressions 01/30/2024 4:19 PM RHEOLOGIST BI-RADS ATLAS category (overall): 1 - Negative There is no mammographic evidence of malignancy. A 1 year screening mammogram is recommended. The patient has been or will be contacted. We recommend annual screening mammography for women at average risk of breast cancer beginning at age 40, based on guidelines of the [employer] (ACR Practice Parameter for the Performance of Screening and Diagnostic Mammography) and [employer]. For women with and elevated risk of breast cancer, please refer to the ACR Practice Parameter for specific screening recommendations. The patient will be entered into a reminder system with a target due date of 1 year for her next screening exam. Narrative 01/30/2024 4:19 PM RHEOLOGIST Screening Mammogram Bilateral W David: 01/30/24 The study was acquired using full field digital technology and interpreted from soft copy. 2D digital mammographic views, as well as 3D digital tomosynthesis were performed in the CC and MLO projections. CLINICAL: Screening mammogram, encounter for. No relevant medical history has been documented for this patient. No known family history of breast cancer. COMPARISON: Baseline Screening Mammography. No prior mammography is available for comparison. BREAST TISSUE: The breasts are heterogeneously dense, which may obscure small masses. FINDINGS: No suspicious masses, suspicious calcifications, or other suspicious findings are seen within either breast. us Self Screening Mammogram IMG MAMMO PROCEDURES Fi nal Result from Last 3 Months or Most Recently Relevant to Health Maintenance Insurance [facility] Care Teams Stave Planer Tender Relationship Specialty Start Date End Date Priscilla Leon MD [address] [address] PCP - General Family Medicine 05/20/19
--- OUTSIDE RECORDS SUMMARY | 2024-06-04 16:53 | XMS_ITS | Clinical Summary ---
Author Organization [facility] Address [address] [place] [address] Care Team Providers Care Kennel Manager Dog Track Name Role Phone Priscilla Leon MD Primary Care Provider [phone] Source Comments [facility],non-owned Affiliates and Associated Physician Practices is amultiple site organization consisting of ambulatory clinics and hospital sitesin [place], [place], [place] and [place]. This disclosure is being madepursuant to the Care Everywhere program and may not contain all information available regarding this patient. Last updated 17.[facility] Allergies Active Allergy Reactions Criticality Noted Date Comments Augmentin Itching,Nausea and/o r Vomiting 09/12/2013 Sulfamethoxazole W-Trimethoprim Itching,Nausea and/or Vomiting 09/12/2013 Sulfa Drugs Itching,Nausea and/o r Vomiting 09/12/2013 Medications * Be aware that medications may not be up to date on this document. Alwaysverify current medications with the patient. Medication Sig Dispensed Refills Start Date End Date Status escitalopram (LEXAPRO) 10 MG tablet Take 10 mg by mouth once daily. Active Multiple Vitamin (MULTI-VITAMIN DAILY PO) Take by mouth once daily. Active Social History Tobacco Use Types Packs/Day Years Used Date Smoking Tobacco: Never Sex and Gender Information Value Date Recorded Sex Assigned at Not on file Gender Identity Not on file Sexual Orientation Not on file Last Filed Vital Signs Vital Sign Reading Time Taken Comments Blood Pressure - - Pulse - - Temperature - - Respiratory Rate - - Oxygen Saturation - - Inhaled Oxygen Concentration - - Weight 58.1 kg (128 lb) 09/12/2013 8:30 AM CDT Height 165.1 cm (5' 5 ) 09/12/2013 8:30 AM CDT Body Mass Index 21.3 09/12/2013 8:30 AM CDT Plan of Treatment Health Maintenance Due Date Last Done Comments LIPID TESTING 1982 MAMMOGRAM 1982 PAP SMEAR 1982 HIV SCREENING 1997 HEPATITIS C SCREENING 08/13/2000 DTAP/TDAP/TD VACCINES (1 - Tdap) 2001 HEPATITIS B VACCINE (1 of 3 - 19+ 3-dose series) 2001 COVID-19 VACCINE (1 - 2023-2 5 season) 2023 INFLUENZA VACCINE (#1) 2023 DEPRESSION SCREENING 03/20/2024 ZOSTER VACCINE (1 of 2) 2032 HIB VACCINE Aged Out No longer eligi ble based on patient's age to complete this topic HPV VACCINE Aged Out No longer eligi ble based on patient's age to complete this topic MENINGOCOCCAL (Group B) VACC INE SHARED DECISION-MAKING Aged Out No longer eligibl e based on patient's age to complete this topic MENINGOCOCCAL GROUPS A/C/Y/W VACCINE Aged Out No longer eligible b ased on patient's age to complete this topic PNEUMOCOCCAL VACCINE Aged Out No long er eligible based on patient's age to complete this topic Care Teams Kennel Manager Dog Track Relationship Specialty Start Date End Date Priscilla Leon MD PCP - General Family Medicine 08/30/16
--- OUTSIDE RECORDS SUMMARY | 2024-06-04 16:53 | XMS_ITS | Encounter Summary ---
Author Organization [facility] Address [address] [place] [address] Care Team Providers Care Clinic Clerk Name Role Phone Priscilla Leon MD Primary Care Provider [phone] Encounter Details Date Type Department Care Team (Late st Contact Info) Description 11/22/2022 Lab Requisition [facility] - DermPath Lab [address] [place] [address] Concepcion Florian DO [address] [facility] [address] [place] [address] Social History Tobacco Use Types Packs/Day Years Used Date Smoking Tobacco: Never Sex and Gender Information Value Date Recorded Sex Assigned at Not on file Gender Identity Not on file Sexual Orientation Not on file documented as of this encounter Plan of Treatment Not on file documented as of this encounter Procedures Procedure Name Priority Date/Time Associated Diagnosis Comments DERMATOPATHOLOGY Routine 11/22/2022 9:38 AM CDT documented in this encounter Results * DERMATOPATHOLOGY (11/22/2022 9:38 AM CDT) Case Report Dermatopathology Report Case: [id number] Authorizing Provider: Concepcion Florian DO Collected: 11/22/2022 09:38 AM Ordering Location: [facility] DermPath Lab Received: 11/22/2022 04:11 PM Pathologist: Andreas Belle MD Specimen: Skin, right posterior neck 5:12 PM CDT DERMATOPATHOLOGY LABORATORY Final Diagnosis Specimen A. SKIN, right posterior neck: INTRADERMAL MELANOCYTIC NEVUS WITH CONGENITAL FEATURES (D22.9) 3 5:12 PM CDT DERMATOPATHOLOGY LABORATORY Clinical History NEVUS IRRIATED 3 5:12 PM CDT DERMATOPATHOLOGY LABORATORY Gross Description Specimen A: Received is one formalin filled container labeled with the patient's name and designated right posterior neck. The specimen consists of a shave biopsy measuring 4x4x2 mm. Jar 0. 3 5:12 PM CDT DERMATOPATHOLOGY LABORATORY Microscopic Description Specimen A. SKIN, right posterior neck: There are nests of cytologically bland melanocytes within the dermis. Some of these melanocytes are concentrated around blood vessels and adnexal structures. 3 5:12 PM CDT DERMATOPATHOLOGY LABORATORY Disclaimer An external and internal positive and negative controls are appropriate for the histochemical, immunohistochemical and immunofluorescence stain(s) in this case (if any), except where stated explicitly. The performance characteristics of the stain(s) cited in this report were developed and its performance characteristic determined by the Dermatopathology Laboratory at [facility], directed by Dr. Wade Belle. These tests need not be, and therefore are not, approved by the [place] Food and Drug Administration. The tests are used for clinical purposes. Billing Codes Specimen Charges Stain Charges 44577 1 3 5:12 PM CDT DERMATOPATHOLOGY LABORATORY Embedded Images 3 5:12 PM CDT DERMATOPATHOLOGY LABORATORY Pathology/Cytolo gy TISSUE SPECIMEN FROM SKIN / Unknown 11/22/2022 9:38 AM CDT 11/22/2022 4:11 PM CDT Concepcion Florian DO LAB - PATHOLOGY/C YTOLOGY ORDERABLES DERMATOPATHOLOGY LABORATORY [facility] - Department of Dermatology [address], [address] [phone] documented in this encounter Visit Diagnoses Not on filedocumented in this encounter Care Teams Clinic Clerk Relationship Specialty Start Date End Date Priscilla Leon MD PCP - General Family Medicine 08/30/16 documented as of this encounter
--- OUTSIDE RECORDS SUMMARY | 2024-06-04 16:53 | XMS_ITS | Clinical Summary ---
Author Organization [facility] Address [facility] [place] [address] Care Team Providers Care [place] Name Role Phone Priscilla Leon MD Primary Care Provider [phone] Allergies Active Allergy Reactions Criticality Noted Date Comments Amoxicillin-Pot Clavulanate Itching 04/30/19 19 Sulfamethoxazole-Trimethoprim Itching 2018 Sulfa Antibiotics Itching 04/30/2018 Medications MULTIPLE VITAMIN OR Take by mouth daily. Active escitalopram 10 MG tablet Take 10 mg by mouth daily. Active ibuprofen 800 MG tablet 06/16/2020 Active pantoprazole EC 40 MG tablet 09/14/2020 Active rizatriptan 10 MG tablet 08/24/2020 Active sertraline 100 MG tablet 07/09/2020 Active Active Problems No known active problems Immunizations Name Administration Dates Next Due Flublok (Quadrivalent) 01/08/2020 Influenza (Generic) 12/05/2016 MMR 08/20/1992 Tdap (Generic) 11/04/2016 Family History Medical History Relation Comments None Father None Mother Relation Status Comments Father Mother Social History Tobacco Use Types Packs/Day Years Used Date Smoking Tobacco: Former Smokeless Tobacco: Never Alcohol Use Standard Drinks/Week Comments Yes 0 (1 standard drink = 0.6 oz pur e alcohol) socially PHQ-2 Answer Date Recorded PHQ-2 Score - If the patient scores above 3, please move on to questions 3-9 0 10/03/2020 Comments No Sex and Gender Information Value Date Recorded Sex Assigned at Not on file Legal Sex Female 6:43 PM CDT Gender Identity Not on file Sexual Orientation Not on file Last Filed Vital Signs Vital Sign Reading Time Taken Comments Blood Pressure 118/66 10/03/2020 11:30 AM CDT Pulse 86 10/03/2020 11:30 AM CDT Temperature 36.6 C (97.8 F) 10/03/2020 11:30 AM CDT Respiratory Rate 18 10/03/2020 11:30 AM CDT Oxygen Saturation 98% 10/03/2020 11:30 AM CDT Inhaled Oxygen Concentration - - Weight 77.1 kg (170 lb) 10/03/2020 11:30 AM CDT Height 166.4 cm (5' 5.5 ) 10/03/2020 11:30 AM CD T Body Mass Index 27.86 10/03/2020 11:30 AM CDT Plan of Treatment Health Maintenance Due Date Last Done Comments Cervical Cancer Screening Pa p Smear (Age 30 to 64) Every 3 Years 1982 Annual Physical 1985 Hepatitis C 2000 Hepatitis B Vaccines (1 of 3 - 19+ 3-dose series) 2001 Cervical Cancer Screening Pa p with HPV Testing (Age 30 to 64) Every 5 Years 2012 Cervical Cancer Screening wi HPV 2012 Mammogram Screening 2022 COVID-19 Vaccine (3 - 2023-2 5 season) 2023 07/05/2020, 06/14/2020 Influenza Adult (#1) 2023 01/08/2020, 12/05/2016 DTaP, Tdap and Td Vaccines ( 2 - Td or Tdap) 11/04/2026 11/04/2016 HPV Vaccines Aged Out No longer eligi ble based on patient's age to complete this topic Meningococcal B Vaccine Aged Out No l onger eligible based on patient's age to complete this topic Meningococcal Vaccine Aged Out No buck severino eligible based on patient's age to complete this topic Pneumococcal Vaccine: Pediatrics (0 to 5 Years) and At-Risk Patients (6 to 64 Years) Aged Out No longer eligible b ased on patient's age to complete this topic RSV Immunizations Under 20 Months Aged Out No longer eligible b ased on patient's age to complete this topic Insurance [facility] Care Teams [place] Relationship Specialty Start Date End Date Priscilla Leon MD [address] [facility] [address] [place] [address] PCP - General 10/14/16
--- OUTSIDE RECORDS SUMMARY | 2024-06-04 16:53 | XMS_ITS | Clinical Summary ---
Author Organization [place] [id number] [facility] Address [address] [place] [address] Care Team Providers Care Car Wash Attendant Automatic Name Role Phone Priscilla Leon MD Primary Care Provider [phone] Allergies Active Allergy Reactions Criticality Noted Date [...] Active Active Problems No known active problems Medical History Medical History Date Comments Allergic rhinitis Anxiety Sinusitis Family History Medical History Relation Name Comments Cancer Father Cancer Maternal Grandmother Relation Name Status Comments Father Maternal Grandmother Social History Tobacco Use Types Packs/Day Years Used Date Smoking Tobacco: Former Smokeless Tobacco: Never Comments No Sex and Gender Information Value Date Recorded Sex Assigned at Not on file Legal Sex Female 2:26 AM CURATOR OF PHOTOGRAPHY AND PRINTS Gender Identity Not on file Sexual Orientation Not on file Obstetrics History Para Term AB IAB SAB Ectopic Multiple Livin g Live Births 1 1 1 Date Outcome GA Total Labor Labor/2nd/3rd Weight Sex Type Anes PTL Radha A1 A5 Name Clin Term Last Filed Vital Signs Vital Sign Reading [...] 06/06/2019 9:03 AM CDT Plan of Treatment Health Maintenance Due Date Last Done Comments Cervical Cancer Screening 1982 Depression Screening 1982 Hepatitis C Screening 1982 Varicella Vaccines (1 of 2 - 13+ 2-dose series) 08/19/1995 Hepatitis B Screening 2000 Regular Well Visit/Exam 18-64 2000 Influenza Vaccine (#1) 2023 0, 12/05/2016 Breast Cancer Screening-Mammogram 01/29/2025 01/30/2024, 12/29/2022 DTaP/Tdap/Td Vaccine (2 - Td or Tdap) 11/04/2026 11/04/2016 HPV Vaccines Aged Out No longer eligi ble based on patient's age to complete this topic Pneumococcal vaccine <65 Aged Out No longer eligible based on patient's age to complete this topic Procedures Procedure Name Priority Date/Time Associated Diagnosis Comments SCREENING MAMMOGRAM BILATERAL W DAVID Schedule Routine, Read Routine (OP Routine) 01/30/2024 3:39 PM CURATOR OF PHOTOGRAPHY AND PRINTS Screening mammogram, encounter for from Last 3 Months or Most Recently Relevant to Health Maintenance Results * Screening Mammogram Bilateral W David (01/30/2024 3:39 PM CURATOR OF PHOTOGRAPHY AND PRINTS) Anatomical Region Laterality Modality Breast Bilateral Mammography Impressions 01/30/2024 4:19 PM CURATOR OF PHOTOGRAPHY AND PRINTS BI-RADS ATLAS category (overall): 1 - Negative There is no mammographic evidence of malignancy. A 1 year screening mammogram is recommended. The patient has been or will be contacted. We recommend annual screening mammography for women at average risk of breast cancer beginning at age 40, based on guidelines of the [employer] (ACR Practice Parameter for the Performance of Screening and Diagnostic Mammography) and [place] [employer]. For women with and elevated risk of breast cancer, please refer to the ACR Practice Parameter for specific screening recommendations. The patient will be entered into a reminder system with a target due date of 1 year for her next screening exam. Narrative 01/30/2024 4:19 PM CURATOR OF PHOTOGRAPHY AND PRINTS Screening Mammogram Bilateral W David: 01/30/24 The [...] Most Recently Relevant to Health Maintenance Insurance [facility] [employer] Care Teams Car Wash Attendant Automatic Relationship Specialty Start Date End Date Priscilla Leon MD [address] [facility] [address] [place] [address] PCP - General Family Medicine 05/20/19
== END 2024-06-04 15:22 | disposition home or self-care (01) ==
PROVIDERS: Emergency Provider Nurse Practitioner Family; PCP Family Medicine
DX: J02.9 Acute pharyngitis, unspecified (principal); J06.9 Acute upper respiratory infection, unspecified; K21.9 Gastro-esophageal reflux disease without esophagitis; F41.9 Anxiety disorder, unspecified
CPT/HCPCS: 87081; 87880; 99213; G0463